=== PATIENT | female | born 2000 | race Two or more races ===

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

== ENCOUNTER 2024-03-16 11:31 | Outpatient (CLI) | payer MEDICAID | END 2024-03-16 23:59 | disposition home or self-care (01) | LOC: CARD DIAG 11:31 | PROVIDERS: ATTEND Physician Assistant | DX: I35.8 Other nonrheumatic aortic valve disorders (principal); G47.33 Obstructive sleep apnea (adult) (pediatric); G90.A Postural orthostatic tachycardia syndrome [POTS] | CPT/HCPCS: 93306 ==